=== PATIENT | female | born 1950 | race Caucasian/White ===

== ENCOUNTER 2018-05-20 07:50 | Day surgery (SDC) | payer MEDICARE ==
--- NOTE | 2018-05-20 06:32 | History and Physical - [place] ---
CHIEF COMPLAINT/HISTORY OF CHIEF COMPLAINT: This patient presents today with a history of intractable lumbar radiculopathy, a post laminectomy syndrome, and a spinal infusion device which is infusing Morphine. Over the last refill battery depletion was identified and she is here for pump battery change without perimeter changes. PAST MEDICAL HISTORY: Cardiovascular disease, thrombophlebitis, peripheral neuropathy, pancreatitis, and post laminectomy syndrome. PAST SURGICAL HISTORY: Multiple lumbar laminectomies, infusion, appendectomy, gallbladder surgery, hysterectomy and cardiac surgery. MEDICATIONS ON ADMISSION: List to be provided. ALLERGIES: PHENERGAN, ERYTHROMYCIN AND CYMBALTA. FAMILY/PSYCHOSOCIAL HISTORY: Social history - Caffeine. Family history - Diabetes. SYSTEMS REVIEW: The patient is appropriate and in no acute distress. The remainder of the systems review is unremarkable. PHYSICAL EXAMINATION: Height is 5'9", weight is 200 pounds. No vital signs. HEENT: Within normal limits. LUNGS: Clear. HEART: Regular rate and rhythm. ABDOMEN: Nontender. MUSCULOSKELETAL: Examination of the musculoskeletal system shows the pump in the right posterior gluteal margin. The incision was intact. Primary pain pattern low back with a bilateral lower extremity extension. Motor and sensory field function shows mild deficits across L4-L5 and weakness in both legs. Ambulation - An assistive device is typically utilized. NEUROLOGIC: Cranial nerves are intact. IMPRESSION: 1. POST LUMBAR LAMINECTOMY SYNDROME, ICD-10 CODE M96.1 WITH RADICULOPATHY, ICD- 10 CODE M54.16 AND M54.17. 2. IMPLANTED SPINAL OPIOID INFUSION SYSTEM USING MORPHINE. PLAN: The patient is here for a pump battery change with perimeter change. The procedure will be considered outpatient although an overnight stay will be evaluated. JOB NUMBER: [id number] [facility]
[~2018-05-20 07:50] MED LIST: ACETAMINOPHEN 1,000 MG/100 ML BTL IV ONE; FAMOTIDINE 20MG TABLET PO ONE; HYDROMORPHONE HCL IV ONE; HYDROMORPHONE PF 2MG/ML AMP 0.008 MG in 0.9 % SODIUM CHLORIDE 10ML VIA 0.996 ML IV ONE; MECLIZINE 25 MG TABLET PO ONE; METOCLOPRAMIDE 10 MG TABLET PO ONE; SODIUM CHLORIDE 0.9% IV ONE; VANCOMYCIN HCL 1,000 MG in DEXTROSE 5 % IN WATER 250 ML IVPB ONE
[2018-05-20] MEDS ORDERED: FENTANYL PF 100MCG/2ML VIAL IV ONE (07:51)
[2018-05-20] MEDS ORDERED: CEFAZOLIN 1G VIAL IM ONE (07:51)
[2018-05-20] MEDS ORDERED: PROPOFOL 10 MG/ML VIAL IV ONE (07:51)
[2018-05-20] MEDS ORDERED: BUPIVACAINE 0.5% W/EPI MPF 30 ML VIAL IVP ONE (07:51)
[2018-05-20] MEDS ORDERED: **ER** KETAMINE HCL 500MG/10ML VIAL IV ONE (07:51)
[2018-05-20] MEDS ORDERED: MIDAZOLAM HCL 2MG/2ML VIAL IV ONE (07:51)
[2018-05-20] MEDS ORDERED: LIDOCAINE 1% W/EPI 1:200,000 MPF 30ML SQ ONE (07:51)
[2018-05-20] MEDS ORDERED: LIDOCAINE 2% MDV (20MG/ML) 20ML VIAL IV ONE (07:51)
[2018-05-20] MEDS ORDERED: 0.9 % SODIUM CHLORIDE 10 ML VIAL IVP ONE (07:51)
[2018-05-20 08:13] LABS: BASO % 0.7 % (0-6); EOS % 4.2 % (0-6); GRAN % 66.5 % (47-80); HEMATOCRIT 40.8 % (35.0-47.0); HEMOGLOBIN 13.5 gm/dl (11.6-16.0); LYMPH % 19.6 % (16-45); MEAN CELL VOLUME 96.5 fl (81-97); MEAN CORPUSCULAR HEMOGLOBIN 31.9 pg (27-33); MEAN CORPUSCULAR HGB CONC 33.1 g/dl (32-36); MEAN PLATELET VOLUME 10.4 fl (7.4-10.4); PLATELET COUNT 243 K/uL (130-400); RED BLOOD COUNT 4.23 M/uL (3.80-5.40); RED CELL DISTRIBUTION WIDTH 12.1 % (11.5-14.5); WHITE BLOOD COUNT W/O DIFF 8.4 K/uL (4.2-12.2)
[2018-05-20 08:20] LABS: BLEEDING TIME 3.5 MINUTES (1.5-7.0)
[2018-05-20 08:24] LABS: PARTIAL THROMBOPLASTIN TIME 29.4 SECONDS (24.5-39.1); PROTHROMBIN TIME (PATIENT) 10.4 SECONDS (9.5-12.1)
[2018-05-20 08:26] LABS: BLOOD UREA NITROGEN 7 mg/dL (8-23); CREATININE 0.7 mg/dL (0.5-0.9); EST GLOMERULAR FILTRATION RATE > 60 mL/min; GLUCOSE,RANDOM 104 mg/dL (74-109)
--- NOTE | 2018-05-22 11:40 | Operative Note ---
DATE: 05/20/2018. PREOPERATIVE DIAGNOSES: 1. POSTLUMBAR LAMINECTOMY SYNDROME, ICD-10 CODE M96.1. 2. RADICULOPATHY, ICD-10 CODE M54.16 AND M54.17. 3. IMPLANTED SPINAL OPIOID INFUSION SYSTEM WITH MORPHINE WITH BATTERY DEPLETION. PROCEDURES: 1. Fluoroscopically guided incision, subcutaneous dissection, and removal and replacement of programmable pump at the right posterior gluteal margin. 2. Incision, subcutaneous dissection, revision, and repositioning of indwelling spinal catheter. 3. Interface revised catheter to pump securing it to the pump pouch at the posterior fascia using nonabsorbable suture at three points with pump eyelets. 4. Placement of curved 24-gauge Mcclendon needle into access port programmable pump aspirating and clearing catheter of opioid and cerebrospinal fluid mixture. 5. Diagnostic myelography with radiologic supervision and interpretation, confirming functionality of catheter and pump. 6. Closure of incision with Stratafix suture with #2-0 for the fascia and #3-0 for the skin. Dermabond closure. 7. Programming of pump to delivery by continuous infusion morphine at 7.0 mg per day. All alarm values reset. SURGEON: Abdifatah Dykes D.O. ANESTHESIA: Local sedation. ANESTHESIA PROVIDER: Oksana Rosenberg CRNA. INDICATIONS: This is a patient presents with a history of intractable postlaminectomy radiculopathy. Due to the failure of all therapy, a spinal infusion system was implanted five to ten years ago. Over the last number of programming and refills, battery depletion was identified. She is here for pump battery change, removal, and replacement. DESCRIPTION OF PROCEDURE: Intravenous lines, vital sign monitoring, and intravenous sedation. Sterile prep and sterile technique. Under imaging the right posterior margin posterior gluteal pouch for the pump was infiltrated with local. An incision was made and subcutaneous dissection was conducted to the pump pouch. The pump pouch and Dacron sleeve were opened, and the pump was exteriorized and from the internal catheter. The indwelling catheter was densely fibrosed by scar tissue into the posteromedial aspect of the pouch. Bovie and incision was then performed, freeing the catheter of scar tissue. Revised the position, moving out of the scar, freeing the catheter of scar tissue. Antibiotic irrigation and Bovie for hemostasis. A new 40 mL pump was placed onto the field prefilled with morphine and interfaced with the indwelling catheter which was revised in its position. Antibiotic irrigation and Bovie for hemostasis. The pump was placed into the pouch and secured to the posterior fascia with nonabsorbable suture at three points with pump eyelets. The Dacron sleeve was of necessity resected for the most part out of the pouch. A curved 24-gauge Mcclendon needle was inserted into the access port. Once it was secured to the posterior fascia of the pouch, aspiration of 1.0 mL of catheter contents, clearing the catheter of opioid and cerebrospinal fluid mixture. Diagnostic myelography was then performed. The resulting flow characteristics were noted to be smooth and linear in the space. Appropriate contrast flow characteristics confirmed functionality of the pump and catheter. The catheter tip was at T6. With functionality noted, the incision was closed using Stratafix suture with #2-0 for the fascia and #3-0 for the skin. Dermabond closure was then placed. She was transported to the recovery room stable with no side effects from the procedure or the sedation. When fully awake and alert, she will be prepared for discharge. DISCHARGE INSTRUCTIONS: 1. The sites are to remain clean and dry. No showering or bathing in any way that would disrupt dressings. If this happens, contact the clinic. 2. Standard medications to be resumed including continuing the Levaquin 500 mg once a day. 3. Spinal opioid side effects including respiratory depression, nausea, vomiting, constipation, urinary retention, lightheadedness, and rash have all been discussed and reviewed. 4. All other instructions were provided including numbers to contact with problems. She was then discharged. 5. She will be seen in the office in seven to ten days to evaluate the incisional site. Until then her activities should stay low. JOB NUMBER: [id number] cc:Carmen Garcia
== END 2018-05-20 11:13 | disposition home or self-care (01) ==
LOC: SUR 07:50
PROVIDERS: ATTEND Pain Medicine Interventional Pain Medicine
DX: M96.1 Postlaminectomy syndrome, not elsewhere classified (principal); M54.16 Radiculopathy, lumbar region; M54.17 Radiculopathy, lumbosacral region; E11.9 Type 2 diabetes mellitus without complications; M06.9 Rheumatoid arthritis, unspecified; Z79.01 Long term (current) use of anticoagulants; Z79.4 Long term (current) use of insulin; Z86.711 Personal history of pulmonary embolism
CPT/HCPCS: 62350; 62362; 01936; 62368; 85025; 85730; 85610; 80048; 85002; Q9967; J3370; J3010; J1170; J0690; J7060